=== PATIENT | female | born 1990 | race Two or more races ===

== ENCOUNTER → 2017-12-02 | Emergency (ER) | payer OTHER ==
[~2017-12-02] VITALS: Ht 170.2 cm; Wt 113.4 kg
[~2017-12-02] MED LIST: LOTRISONE CREAM45 GM TP; PERCOCET 5/3251 TAB PO; PRENATABS FA T1 EACH
== END | disposition home or self-care (01) ==
LOC: ER 23:23
DX: R50.9 Fever, unspecified (principal)

== ENCOUNTER 2018-01-28 21:00 | Outpatient (CLI) | payer OTHER | END 2018-01-29 18:02 | disposition home or self-care (01) | LOC: OBS/DEL 21:00 | DX: O26.892 Other specified pregnancy related conditions, second trimester (principal); R19.7 Diarrhea, unspecified; O60.02 Preterm labor without delivery, second trimester; Z34.82 Encounter for supervision of other normal pregnancy, second trimester ==

== ENCOUNTER 2018-04-16 18:28 | Outpatient (CLI) | payer OTHER ==
[2018-04-16] MEDS ORDERED: GLYBURIDE1.25 MG PO (22:50)
[2018-04-16] MEDS ORDERED: CEFADROXIL500 MG PO (22:51)
[2018-04-25] MEDS ORDERED: IRON18 MG PO (05:58)
== END 2018-04-17 09:30 | disposition home or self-care (01) ==
LOC: OBS/DEL 18:28
DX: O26.893 Other specified pregnancy related conditions, third trimester (principal); Z04.3 Encounter for examination and observation following other accident; Z34.83 Encounter for supervision of other normal pregnancy, third trimester; W18.39XA Other fall on same level, initial encounter; Y93.89 Activity, other specified; Y92.89 Other specified places as the place of occurrence of the external cause; Y99.8 Other external cause status

== ENCOUNTER 2018-04-25 05:58 | Inpatient (IN) | payer OTHER ==
[~2018-04-25] VITALS: Ht 172.7 cm; Wt 117.9 kg
[~2018-04-25 05:58] MED LIST changes: +CEFADROXIL500 MG PO; +GLYBURIDE1.25 MG PO; +IRON18 MG PO
== END 2018-04-28 18:07 | disposition home or self-care (01) | DRG 766 ==
LOC: O/R 05:58 → OB/GYN 05:58 → LDR 11:00 → OB/GYN 13:11
PROVIDERS: Obstetrics & Gynecology
PROC: 0UB50ZZ Excision of Right Fallopian Tube, Open Approach (ICD-10-PCS; 2018-04-25)
PROC: 0UL60ZZ Occlusion of Left Fallopian Tube, Open Approach (ICD-10-PCS; 2018-04-25)
PROC: 4A033R1 Measurement of Arterial Saturation, Peripheral, Percutaneous Approach (ICD-10-PCS; 2018-04-25)
PROC: 4A1HXCZ Monitoring of Products of Conception, Cardiac Rate, External Approach (ICD-10-PCS; 2018-04-25)
PROC: 10D00Z1 Extraction of Products of Conception, Low, Open Approach (ICD-10-PCS; principal; 2018-04-25 11:00)
DX: O24.420 Gestational diabetes mellitus in childbirth, diet controlled (principal); Z3A.38 38 weeks gestation of pregnancy; Z37.0 Single live birth; Z30.2 Encounter for sterilization

== ENCOUNTER 2020-05-26 16:27 | Emergency (ER) | payer OTHER ==
[~2020-05-26] VITALS: Ht 170.2 cm; Wt 113.4 kg
== END 2020-05-26 20:06 | disposition home or self-care (01) ==
LOC: ER 16:27
DX: N83.291 Other ovarian cyst, right side (principal); R10.32 Left lower quadrant pain; R10.31 Right lower quadrant pain

== ENCOUNTER 2021-04-03 12:35 | Emergency (ER) | payer OTHER ==
[~2021-04-03] VITALS: Ht 170.2 cm; Wt 117.9 kg
== END 2021-04-03 17:23 | disposition home or self-care (01) ==
LOC: ER 12:35
DX: M62.838 Other muscle spasm (principal); M94.0 Chondrocostal junction syndrome [Tietze]